=== PATIENT | male | born 1980 | race Caucasian/White ===

== ENCOUNTER → 2017-03-25 | Day surgery (SDC) | payer OTHER ==
[2017-03-19 11:02] VITALS: BP 130/86
[~2017-03-25] VITALS: Ht 175.2 cm; Wt 63.5 kg
[~2017-03-25] MED LIST: ACYCLOVIR400 MG PO; LISINOPRIL20 MG PO; METOPROLOL SUCC50 M1 PO; NORCO 5-325 TA1 EACH PO; PENICILLIN VK500 MG PO
--- NOTE | ~2017-03-25 | O ---
[place], [place] OPERATIVE NOTE NAME: ROSI ALTAMIRANO UNIT #: [id number] ROOM: DOCTOR: SHAWN CULLEN DMD BIRTHDATE: [birth year] DOS: PREOPERATIVE DIAGNOSES: Caries, impacted third molars and anxiety. POSTOPERATIVE DIAGNOSES: Caries, impacted third molars and anxiety. ANESTHESIA: General anesthesia with endotracheal intubation. FLUIDS: Minimal. ESTIMATED BLOOD LOSS: Minimal. COMPLICATIONS: None. CONDITION: To PACU, stable. DESCRIPTION OF PROCEDURE: The patient was brought to the OR and placed in supine position. IV and EKG lines were placed. Endotracheal intubation and general anesthesia was administered. The patient was prepped and draped for oral procedures. Risk and benefits were explained to the patient prior to surgery. Clinical exam and x-rays taken determined nonrestorable teeth #17, 18, 31 and 32. 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 PROCEDURES PERFORMED: Full thickness flaps in the lower left and lower right quadrants, moderate bone removal with minimal sectioning, complete extraction of teeth #17, 18, 31 and 32. Sutured with 4-0 Vicryl. Lavaged x 2. Throat pack removed. The patient left the OR in good condition and went to the PACU. SHAWN CULLEN DMD CM:OPRECORD:OPERATIVE NOTE [id number] SHAWN CULLEN DMD 03/26/17 1117 interface
[2017-03-25 07:04] VITALS: BP 167/98
[2017-03-25 08:53] VITALS: BP 110/72
[2017-03-25 09:08] VITALS: BP 120/78
[2017-03-25 09:23] VITALS: BP 117/72
[2017-03-25 09:38] VITALS: BP 126/79
[2017-03-25 09:53] VITALS: BP 120/75
== END ==
LOC: SDC 03-19 11:00
DX: K02.9 Dental caries, unspecified (principal); K01.1 Impacted teeth; F41.9 Anxiety disorder, unspecified; I10 Essential (primary) hypertension; F17.210 Nicotine dependence, cigarettes, uncomplicated; Z88.8 Allergy status to other drugs, medicaments and biological substances; Z79.899 Other long term (current) drug therapy